=== PATIENT | male | born 1965 | race Caucasian/White ===

== ENCOUNTER → 2023-01-27 | Outpatient (CLI) | payer OTHER ==
--- NOTE | 2023-02-02 13:30 | MR ---
EXAMINATION TYPE: MR shoulder RT wo con DATE OF EXAM: 01/27/2023 8:42 AM COMPARISON: NONE HISTORY: Rt shoulder pain TECHNIQUE: Multiplanar multispin echo imaging of the right shoulder was performed. FINDINGS: Rotator cuff : There is heterogeneity and thickening of the supraspinatus tendon compatible with cafeteria or lunchroom checker hien tendinopathy. Intrasubstance partial tears are noted. No evidence for full-thickness tear or retr acted tear at this time. Infraspinatus tendon and the subscapularis tendon are intact. There is tendi nosis of the subscapularis tendon. Bursa: There is joint effusion seen with thickened synovium consistent with synovitis. Fluid is seen along the course of the biceps tendon compatible with teno synovitis. Small amount of subcoracoid flu id is noted as well. Musculature: There is no muscular tear, contusion, or atrophy. Acromioclavicular joint : There is lateral downsloping of the acromium with subacromial spurring resu lting in a moderate subacromial impingement. There is evidence of AC joint arthropathy. Osseous structures : There are no fractures. Subchondral cyst formation greater humeral tuberosity. Long biceps tendon : The biceps tendon is normally situated within the bicipital groove. No complete or partial biceps tendon tear is present. Glenohumeral Joint fluid : There is no glenohumeral joint effusion. Moderate glenohumeral joint space narrowing seen. Cartilage and Bone : No focal hyaline cartilage defects are noted. No Hill-Sachs, reverse Hill-Sachs, or bony Bankart lesions are seen. Labrum : There are no SLAP or soft tissue Bankart lesions. No paralabral cysts are seen. OTHER FINDINGS : none IMPRESSION: 1. Chronic tendinopathy supraspinatus tendon with intrasubstance partial tear is seen. Moderate subac romial impingement. 2. Tendinopathy involving the subscapularis tendon. 3. Joint effusion with thickened synovium. Correlate for cellulitis. 4. Degenerative changes of osteoarthritis.
== END | disposition home or self-care (01) ==
LOC: RADMRIMAIN 07:56
PROVIDERS: ATTEND Orthopaedic Surgery
DX: M75.111 Incomplete rotator cuff tear or rupture of right shoulder, not specified as traumatic (principal); M25.411 Effusion, right shoulder; M25.811 Other specified joint disorders, right shoulder

== ENCOUNTER → 2023-08-23 | Outpatient (CLI) | payer OTHER ==
--- NOTE | 2023-08-29 16:09 | MR ---
EXAMINATION TYPE: MR shoulder RT wo con DATE OF EXAM: 08/23/2023 COMPARISON: Prior 01/27/2023 HISTORY: 58-year-old male Right shoulder, decreased ROM. TECHNIQUE: Multiplanar, multisequence imaging of the right shoulder is performed without contrast. FINDINGS: Nonvisualization of the intracapsular portion of the long head biceps tendon. Only wispy strands are noted along the bicipital groove with mild tenosynovial fluid. Deficiency of subscapularis insertional fibers at the lesser tuberosity. Some of the far inferior fib ers appear to be intact. Moderate fatty infiltration of the subscapularis muscle belly. Moderate degenerative change at the acromioclavicular joint with subchondral marrow edema, marginal s purring, and capsular hypertrophy. Marked heterogeneity of both supraspinatus and infraspinatus tendons. There is extensive partial tear ing at the junction of both tendons but no high-grade partial or full-thickness tear identified. No atrophy of their muscle bellies. Mild to moderate effusion in the subacromial/subdeltoid bursa. There is moderate to severe degenerative change at the glenohumeral joint with marginal spurring and large areas of irregular cartilage loss especially along the superior and mid aspect of the humeral h ead. Small scattered loose bodies in the glenohumeral joint measuring up to 5 mm. Small joint effusio n. Diffusely degenerative glenoid labrum. No Hill-Sachs deformity or os acromiale. Diffusely heterogeneous marrow signal without suspicious bone marrow replacement. IMPRESSION: 1. The long head biceps tendon is nonvisualized suggesting tear with retraction, likely chronic at th is point. 2. Deficiency of subscapularis insertional fibers with moderate fatty infiltration of its muscle yadav y. Some of the far inferior fibers appear to be intact but the majority appears to be torn. 3. Diffuse supraspinatus and infraspinatus tendinosis with extensive partial tearing at their junctio n but no full-thickness tear. 4. Moderate AC joint OA. Subchondral marrow edema could represent acute exacerbation of underlying OA . 5. Nonspecific small to moderate bursal effusion. 6. Moderate to severe glenohumeral joint OA.
== END | disposition home or self-care (01) ==
LOC: RADMRIMAIN 11:35
PROVIDERS: ATTEND Orthopaedic Surgery Sports Medicine
DX: M75.111 Incomplete rotator cuff tear or rupture of right shoulder, not specified as traumatic (principal); M67.813 Other specified disorders of tendon, right shoulder; M19.011 Primary osteoarthritis, right shoulder; M25.411 Effusion, right shoulder

== ENCOUNTER → 2024-06-14 | Outpatient (CLI) | payer OTHER ==
--- NOTE | 2024-06-14 10:27 | MR ---
EXAMINATION TYPE: MR shoulder LT wo con DATE OF EXAM: 06/14/2024 9:38 AM COMPARISON: None. CLINICAL INDICATION: Male, 59 years old with history of M75.112 INCOMPLETE ROTATOR CUFF TEAR, Lt shou lder pain TECHNIQUE: Multiplanar, multisequence imaging of the left shoulder is performed without contrast. FINDINGS: Mild fluid along the bicipital groove with some minimal strand-like density. No well-defined long hea d biceps tendon is identified. There is a complete tear of the subscapularis tendon with moderate fatty infiltration of its muscle b paris. Suture anchor at the greater tuberosity suggesting prior responding to tendon repair. The tendon is d iffusely heterogeneous. Both supraspinatus and infraspinatus tendons show scattered intrasubstance ch ekaterina and bursal sided fraying. In addition, there is a bursal sided tear of the anterior supraspinatu s tendon insertion measuring 9 x 9 mm approaching 50% of the tendon thickness. There is an intrasubstance tear near the myotendinous junction of the supraspinatus measuring 1.5 cm long and 1.0 cm AP. Mild effusion within the subacromial/subdeltoid bursa. No atrophy of either supraspinatus or infraspinatus muscle bellies. Moderate degenerative change at the acromial clavicular joint with joint space narrowing, subarticula r bony irregularity and cystic change with marginal spurring. No atrophy of either supraspinatus or infraspinous muscle bellies. There is a small to moderate joint effusion. Mild thinning of humeral head articular cartilage. Dege nerative signal within the superior labrum and some linear fluid signal undercutting the labral chond ral junction along the posterior inferior corner, axial image 14 may represent a small labral tear. No Hill-Sachs deformity os acromiale. Patchy red marrow hyperplasia which can be seen with anemia, sm oking, chronic disease. IMPRESSION: 1. Complete tear of the subscapularis tendon with moderate fatty atrophy of its muscle belly. 2. A suture anchor at the greater tuberosity suggests previous cuff repair. Moderate supraspinatus an d infraspinatus tendinosis is present with scattered intrasubstance change and bursal sided fraying. Additional (1) bursal sided tear of the far anterior supraspinatus tendon insertion measuring 9 x 9 m m and approaching 50% of the tendon thickness and (2) intrasubstance tear delaminating at the suprasp inatus myotendinous junction measuring 1.5 x 1.0 cm. 3. The long head biceps tendon appears torn. 4. Moderate AC joint OA and mild to moderate bursal effusion. 5. Degenerative signal superior labrum. Possible small tear of the labrum along the posterior inferio r quadrant. [facility], , 06/14/2024 10:25 AM
== END | disposition home or self-care (01) ==
LOC: RADMRIMAIN 09:06
PROVIDERS: ATTEND Orthopaedic Surgery Sports Medicine
DX: M75.122 Complete rotator cuff tear or rupture of left shoulder, not specified as traumatic (principal); M67.814 Other specified disorders of tendon, left shoulder; M19.012 Primary osteoarthritis, left shoulder